=== PATIENT | female | born 1960 ===

== ENCOUNTER 2019-11-29 08:20 | Emergency (ER) | payer OTHER ==
[~2019-11-29] VITALS: Ht 165.1 cm; Wt 73.9 kg
[2019-11-29] MEDS ORDERED: AVALIDE 300-121 EACH (08:40)
[2019-11-29] MEDS ORDERED: NORFLEX100MG PO (11:21)
[2019-11-29] MEDS ORDERED: KETO10TA2 PO (11:21)
== END 2019-11-29 11:26 | disposition home or self-care (01) ==
LOC: ER 08:20
DX: M54.5 Low back pain (principal); R30.0 Dysuria; Z20.828 Contact with and (suspected) exposure to other viral communicable diseases

== ENCOUNTER 2021-05-07 22:06 | Emergency (ER) | payer OTHER ==
[~2021-05-07] VITALS: Ht 160 cm; Wt 72.6 kg
[~2021-05-07 22:06] MED LIST: AVALIDE 300-121 EACH; KETO10TA2 PO; NORFLEX100MG PO
[2021-05-07] MEDS ORDERED: LOSARTAN POTAS100 MG (22:13)
== END 2021-05-07 23:57 | disposition home or self-care (01) ==
LOC: ER 22:06
DX: R53.1 Weakness (principal)